=== PATIENT | male | born 2000 | race Caucasian/White ===

== ENCOUNTER 2018-11-25 15:10 | Emergency (ER) | payer BC ==
[~2018-11-25] VITALS: Ht 182.9 cm; Wt 90.7 kg
[2018-11-25] MEDS ORDERED: DICLOXACILLIN (15:32)
[2018-11-25] MEDS ORDERED: IBUP-1955 PO (15:32)
--- NOTE | 2018-11-25 15:38 | NUR ---
Dr Silvestre at the bedside for MSE.
[2018-11-25] MEDS ORDERED: IV NORMAL SALINE 1000 ML BAG IV ONE (15:45)
[2018-11-25 16:01] LABS: BASOPHILS % (AUTO) 0.4 % (0.0-2.0); HEMATOCRIT 39.7 % (36.7-47.1); HEMOGLOBIN 13.8 g/dL (12.5-16.3); LYMPHOCYTES # (AUTO) 0.6 K/uL (20.0-40.0); LYMPHOCYTES % (AUTO) 7.1 % (20.5-74.5); MEAN CORPUSCULAR HEMOGLOBIN 29.1 uug (23.8-33.4); MEAN CORPUSCULAR HGB CONC 35 g/dL (32.5-36.3); MEAN CORPUSCULAR VOLUME 83.4 fL (73.0-96.2); MONOCYTES # (AUTO) 0.6 K/uL (2.0-10.0); MONOCYTES % (AUTO) 7.2 % (0-11); NEUTROPHILS # (AUTO) 7.5 K/uL (1.8-8.9); NEUTROPHILS % (AUTO) 85.3 % (31.5-64.5); PLATELET COUNT (AUTO) 137 K/uL (152-348); RED BLOOD CELL COUNT(AUTO) 4.76 MIL/uL (4.06-5.63); WHITE BLOOD COUNT (AUTO) 8.8 K/uL (3.6-10.2)
[2018-11-25 16:03] LABS: CREATININE 1.6 mg/dL (0.6-1.3)
[2018-11-25] MEDS ORDERED: CEFTRIAXONE 1 G VIAL ONE (16:43)
[2018-11-25] MEDS ORDERED: CEFTRIAXONE 1 G in IV DEXTROSE 5% 50 ML IV ONE (16:45)
--- NOTE | 2018-11-25 17:20 | NUR ---
IV removed. Catheter intact and site benign. Pressure and 4x4 gauze applied to site. No bleeding noted.
[2018-11-25 17:26] VITALS: BP 112/60
--- NOTE | 2018-11-25 17:26 | NUR ---
Patient discharged to home in stable conditon. Written and verbal after care instructions given. Patient verbalizes understanding of instructions.
== END 2018-11-25 17:27 | disposition home or self-care (01) ==
LOC: ER 15:13
DX: J06.9 Acute upper respiratory infection, unspecified (principal); Z79.1 Long term (current) use of non-steroidal anti-inflammatories (NSAID); Z79.2 Long term (current) use of antibiotics
CPT/HCPCS: 36415; 71045; 80048; 85025; 87400; 96365; 99284; J0696; A4663; J3490; J7030